=== PATIENT | male | born 1995 | race Two or more races ===

== ENCOUNTER 2017-11-01 13:28 | Emergency (ER) | payer OTHER ==
[~2017-11-01] VITALS: Ht 154.9 cm; Wt 54.0 kg
[~2017-11-01 13:28] MED LIST: CEPHALEXIN500 MG ORAL; GENTAK5 ML BOTH EYES; NORCO 5-325 TA1 EACH PO
[2017-11-01] MEDS ORDERED: NKM (13:34)
--- NOTE | 2017-11-01 13:41 | Emergency Room Report ---
History of Present Illness General Chief Complaint: Laceration Source: Patient Present Illness [facility] The patient is a 22-year-old male presenting for laceration to his finger after work related injury. He states that he was at work, using a knife which slipped and cut the left index finger. This occurred just prior to arrival. He noticed immediate pain and bleeding. Pain is now 5/10 dull ache and does not radiate. Worse with movement. He is unsure of last tetanus shot He denies any other symptoms Allergies: Coded Allergies: No Known Allergies (Unverified , 11/18/12) Patient History Past Medical History: see triage record Pertinent Family History: none Reviewed Nursing Documentation: PMH: Agreed, PSxH: Agreed Nursing Documentation-PMH Past Medical History: No Stated History Review of Systems All Other Systems: negative except mentioned in HPI Physical Exam Vital Signs Date Time Temp Pulse Resp B/P (MAP) Pulse Ox O2 Delivery O2 Flow Rate FiO2 11/01/17 13:30 98.8 84 16 131/77 96 Room Air Sp02 EP Interpretation: reviewed, normal General Appearance: no apparent distress, alert, GCS 15, non-toxic Head: normocephalic, atraumatic Eyes: bilateral eye normal inspection, bilateral eye PERRL Musculoskeletal: back normal, gait/station normal, normal range of motion, tender - L index Neurologic: alert, oriented x3, responsive Psychiatric: judgement/insight normal, memory normal, mood/affect normal, no suicidal/homicidal ideation Skin: laceration - 2cm linear laceration to L index finger dorsal. Distal to DIP joint Procedures Splinting Splinting : Consent: Verbal Location: L index Pre-Made Type: metal Splint: finger splint Pre-Proc Neuro Vasc Exam: normal Post-Proc Neuro Vasc Exam: normal Patient Tolerated: Well Complications: None Laceration/Wound Repair Laceration/Wound Repair : Consent: Verbal Wound Location: upper extremity Wound's Depth, Shape: superficial, linear Wound Length (cm): 2 Wound Explored: clean Irrigated w/ Saline (ccs): 100 Betadine Prep?: Yes Wound Repaired With: Dermabond Sterile Dressing Applied?: Yes Splint Applied?: Yes Type of Splint Applied: finger Sling Applied?: No Patient Tolerated: Well Complications: None Medical Decision Making PA Attestation Dr. Wheeler is my supervising physician. Patient management was discussed with my supervising physician Diagnostic Impression: Primary Impression: Finger laceration Qualified Codes: S61.211A - Laceration without foreign body of left index finger without damage to nail, initial encounter ER Course The patient is a 22-year-old male presenting for laceration to his finger after work related injury Ddx considered include but not limited to fracture, tendon/ligament injury, avulsion, nerve damage PE: 2cm linear laceration to L index finger dorsal. Distal to DIP joint The wound was cleaned with normal saline and Betadine. Dermabond was used to approximate the wound using multiple layers. Was well approximated. Patient tolerated well. A metal finger splint was applied The patient will continue to keep the wound clean and dry and will followup with PMD and workers compensation. Dermabond instructions provided. ER precautions are given Last Vital Signs Date Time Temp Pulse Resp B/P (MAP) Pulse Ox O2 Delivery O2 Flow Rate FiO2 11/01/17 13:30 98.8 84 16 131/77 96 Room Air Status: improved Disposition: HOME, SELF-CARE Condition: Improved Scripts Ibuprofen* (MOTRIN*) 600 Mg Tablet 600 MG ORAL Q8H Y for For Pain, #30 TAB 0 Refills Prov: BELIA MARKS 11/01/17 BELIA MARKS Nov 01, 2017 13:41
[2017-11-01] MEDS ORDERED: Tetanus/Diptheria/Pertussis Vaccine 0.5ml Syr IM ONE (13:45)
[2017-11-01] MEDS ORDERED: IBUPROFEN600 MG ORAL (14:01)
[2017-11-01 14:10] VITALS: BP 135/69
== END 2017-11-01 14:10 | disposition home or self-care (01) ==
LOC: EMR 13:40
DX: S61.211A Laceration without foreign body of left index finger without damage to nail, initial encounter (principal); W26.0XXA Contact with knife, initial encounter; Y92.89 Other specified places as the place of occurrence of the external cause; Y99.0 Civilian activity done for income or pay; Z23 Encounter for immunization
CPT/HCPCS: 90471; 90715; 99283